=== PATIENT | male | born 1990 | race Asian ===

== ENCOUNTER 2024-05-26 07:28 | Emergency (ER) | payer BC ==
[2024-05-26] MEDS ORDERED: Acetaminophen/HYDROcodone 325-5 MG Tab ONE (08:30)
== END 2024-05-26 08:50 | disposition home or self-care (01) ==
LOC: LB.ED 07:28
DX: S82.392A Other fracture of lower end of left tibia, initial encounter for closed fracture (principal); Z88.0 Allergy status to penicillin; W00.0XXA Fall on same level due to ice and snow, initial encounter
CPT/HCPCS: 29515; 73610-LT; 99283; 99283-25; A9270-GY